=== PATIENT | female | born 1960 | race African-American/Black ===

== ENCOUNTER 2017-03-05 20:16 | Emergency (ER) | payer SELFPAY ==
[~2017-03-05 20:16] MED LIST: PROM25SU8 PO; Z.0.NO CURRENT MEDS
[2017-03-05 20:36] VITALS: BP 128/65; PULSE 82; RESP 20; TEMP 99; O2SAT 97
[2017-03-05] MEDS ORDERED: VITA1000 PO (21:37)
[2017-03-05] MEDS ORDERED: LISI-515 PO (21:37)
[2017-03-05] MEDS ORDERED: methylPREDNISolone SOD SUCC 125 MG/2 ML VIAL IV PUSH ONE ×2 (22:00→22:15)
[2017-03-05] MEDS ORDERED: SODIUM CHLOR 0.9% 1000 ML INJ 1,000 ML IV ONE (22:00)
[2017-03-05] MEDS ORDERED: KETOROLAC TROMETHAMINE 30 MG/ML (IVP) VIAL IV PUSH ONE (22:00)
[2017-03-05] MEDS ORDERED: SODIUM CHLORIDE 0.9% FLUSH 10 ML FLUSH IVF PRN (22:00)
--- NOTE | 2017-03-05 22:11 | PD ---
HPI Chief Complaint: Cold / Flu Symptoms Time Seen by Provider: 21:47 Travel History International Travel<30 days: No Contact w/Intl Traveler<30days: No Traveled to known affect area: No History of Present Illness HPI 56-year-old female with history of hypertension here for evaluation of flulike symptoms. Patient reported the symptoms started today. She was taking care of her grandson who was diagnosed with the flu. Patient describes cough productive of yellowish sputum, generalized malaise, fever, body aches/leg aches , headache. Currently the patient states her headache has resolved. She is having mild shortness of breath. PFSH Past Medical History Arthritis: Yes Diminished Hearing: No Immunizations Current: Yes Tetanus Vaccination: Unknown Influenza Vaccination: No ?: Not Menopausal: Yes : 3 Para: 2 : 1 Ovarian Cysts: Yes Tubal Ligation: Yes (FOR TUBAL ) Past Surgical History Gynecologic Surgery: Yes (TL) Other Surgery: No Social History Alcohol Use: No Tobacco Use: No Substance Use: Yes ([facility]) Allergies-Medications (Allergen,Severity, Reaction): Coded Allergies: No Known Allergies (Verified , 08/27/12) Reported Meds & Prescriptions Reported Meds & Active Scripts Active Reported Vitamin D-1000 (Cholecalciferol) 1,000 Unit Tab 1,000 Units PO DAILY Lisinopril 20 Mg Tab 20 Mg PO DAILY Review of Systems Except as stated in HPI: all other systems reviewed are Neg Physical Exam Narrative GENERAL: Well-developed, thin, no apparent distress SKIN: Focused skin assessment warm/dry. No rash. HEAD: Atraumatic. Normocephalic. EYES: Pupils equal and round. No scleral icterus. No injection or drainage. ENT: Mucous membranes pink and moist. NECK: Trachea midline. No JVD. No nuchal rigidity. CARDIOVASCULAR: Regular rate and rhythm. RESPIRATORY: No accessory muscle use. Slight bilateral inspiratory and expiratory wheezes. No rales or rhonchi. Breath sounds equal bilaterally. GASTROINTESTINAL: Abdomen soft, non-tender, nondistended. MUSCULOSKELETAL: No obvious deformities. No clubbing. No cyanosis. No edema. Bilateral lower extremity some mild tenderness throughout, all compartments are supple. NEUROLOGICAL: Awake and alert. No obvious cranial nerve deficits. Motor grossly within normal limits. Normal speech. PSYCHIATRIC: Appropriate mood and affect; insight and judgment normal. Data Data Last Documented VS Vital Signs Date Time Temp Pulse Resp B/P (MAP) Pulse Ox O2 Delivery O2 Flow Rate FiO2 03/05/17 22:15 97 Room Air 03/05/17 22:15 16 03/05/17 21:42 82 03/05/17 20:36 99.0 128/65 (86) Orders Orders Complete Blood Count With Diff (03/05/17 21:52) Comprehensive Metabolic Panel (03/05/17 21:52) Act Partial Throm Time (Ptt) (03/05/17 21:52) Prothrombin Time / Inr (Pt) (03/05/17 21:52) Ckmb (Isoenzyme) Profile (03/05/17 21:52) Troponin I (03/05/17:52) Influenzae A/B Antigen (03/05/17 21:52) Iv Access Insert/Monitor (03/05/17 21:52) Electrocardiogram (03/05/17 21:52) Ecg Monitoring (03/05/17 21:52) Oximetry (03/05/17 21:52) Oxygen Administration (03/05/17 21:52) Chest, Single Ap (03/05/17 21:52) Sodium Chloride 0.9% Flush (Ns Flush) (03/05/17 22:00) Methylprednisolone So Succ Inj (Solumedr (03/05/17 22:00) Albuterol-Ipratropium Neb (Duoneb Neb) (03/05/17 22:00) Sodium Chlor 0.9% 1000 Ml Inj (Ns 1000 M (03/05/17 22:00) Ketorolac Inj (Toradol Inj) (03/05/17 22:00) Methylprednisolone So Succ Inj (Solumedr (03/05/17 22:15) Us Leg Venous Doppler Bilat (03/05/17 ) Urinalysis - C+S If Indicated (03/05/17 22:55) Ct Pulmonary Angiogram (03/05/17 ) Labs Laboratory Tests Test 03/05/17 22:15 White Blood Count 6.1 TH/MM3 Red Blood Count 4.16 MIL/MM3 Hemoglobin 11.9 GM/DL Hematocrit 37.2 % Mean Corpuscular Volume 89.3 FL Mean Corpuscular Hemoglobin 28.6 PG Mean Corpuscular Hemoglobin Concent 32.1 % Red Cell Distribution Width 13.1 % Platelet Count 235 TH/MM3 Mean Platelet Volume 7.4 FL Neutrophils (%) (Auto) 69.7 % Lymphocytes (%) (Auto) 19.6 % Monocytes (%) (Auto) 9.8 % Eosinophils (%) (Auto) 0.0 % Basophils (%) (Auto) 0.9 % Neutrophils # (Auto) 4.2 TH/MM3 Lymphocytes # (Auto) 1.2 TH/MM3 Monocytes # (Auto) 0.6 TH/MM3 Eosinophils # (Auto) 0.0 TH/MM3 Basophils # (Auto) 0.1 TH/MM3 CBC Comment DIFF FINAL Differential Comment Prothrombin Time 10.2 SEC Prothromb Time International Ratio 1.0 RATIO Activated Partial Thromboplast Time 26.3 SEC Blood Urea Nitrogen 8 MG/DL Creatinine 0.73 MG/DL Random Glucose 74 MG/DL Total Protein 7.0 GM/DL Albumin 3.4 GM/DL Calcium Level 8.8 MG/DL Aspartate Amino Transf (AST/SGOT) 52 U/L Alanine Aminotransferase (ALT/SGPT) 73 U/L Total Bilirubin 0.6 MG/DL Sodium Level 138 MEQ/L Potassium Level 3.5 MEQ/L Chloride Level 103 MEQ/L Carbon Dioxide Level 25.6 MEQ/L Anion Gap 9 MEQ/L Estimat Glomerular Filtration Rate 100 ML/MIN MDM Medical Decision Making Medical Screen Exam Complete: Yes Emergency Medical Condition: Yes Medical Record Reviewed: Yes Interpretation(s) EKG: Sinus, rate 87, normal axis, normal intervals, no acute ischemic abnormality. Differential Diagnosis Influenza, viral illness, URI, pneumonia, bronchitis, reactive airway disease, DVT, rhabdomyolysis Narrative Course Vital signs show heart rate 82, blood pressure 128/65, pulse ox 97% on room air , oral temp of 99F. CBC: WBC 6.1, hemoglobin 11.9, hematocrit 37.2, platelets 235, monocytes 9.8%. Chest x-ray shows no acute disease. Influenza is negative. At approximately 11:00 PM at the end of my shift the patient was signed out to Dr. Peters to follow up with CMP, CT pulmonary angiogram, bilateral lower she may duplex, reassess after DuoNeb treatments, and formulate a disposition. Stalin Gibson MD Mar 05, 2017 22:11
[2017-03-05 22:15] VITALS: BP 129/63; PULSE 68; RESP 16; RESP 18; O2SAT 97; O2SAT 98
[2017-03-05] MEDS: RESP: ALBUTEROL 2.5 MG/IPRATROPIUM 0.5 MG NEB (SCH) INH (22:35)
[2017-03-05 22:44] LABS: AUTOMATED NEUTROPHIL # 4.2 TH/MM3 (1.8-7.7); BASOPHIL # 0.1 TH/MM3 (0-0.2); BASOPHIL % 0.9 % (0.0-2.0); HEMATOCRIT 37.2 % (35.0-46.0); HEMOGLOBIN 11.9 GM/DL (11.6-15.3); LYMPH % 19.6 % (9.0-44.0); LYMPHOCYTE # 1.2 TH/MM3 (1.0-4.8); MEAN CELL VOLUME 89.3 FL (80.0-100.0); MEAN CORPUSCULAR HEMOGLOBIN 28.6 PG (27.0-34.0); MEAN CORPUSCULAR HGB CONC 32.1 % (32.0-36.0); MEAN PLATELET VOLUME 7.4 FL (7.0-11.0); MONO % 9.8 % (0.0-8.0); MONOCYTE # 0.6 TH/MM3 (0-0.9); NEUT % 69.7 % (16.0-70.0); PLATELET COUNT 235 TH/MM3 (150-450); RED BLOOD COUNT 4.16 MIL/MM3 (4.00-5.30); RED CELL DISTRIBUTION WIDTH 13.1 % (11.6-17.2); WHITE BLOOD COUNT 6.1 TH/MM3 (4.0-11.0)
--- NOTE | 2017-03-05 22:52 | RADRPT ---
EXAM DATE/TIME: 03/05/2017 22:43 [facility] COMPARISON: No previous studies available for comparison. INDICATIONS : Short of breath MEDICAL HISTORY : None. SURGICAL HISTORY : None. ENCOUNTER: Initial ACUITY: 1 day PAIN SCORE: 0/10 LOCATION: Bilateral chest FINDINGS: The lungs are clear without infiltrate, nodule, or mass. There is no appreciable pleural effusion fo r technique. Heart and mediastinum are unremarkable. CONCLUSION: No acute cardiopulmonary disease. Jovanni Yuan MD on March 05, 2017 at 22:50 Board Certified Radiologist. This report was verified electronically.
[2017-03-05 22:53] LABS: CHLORIDE 103 MEQ/L (98-107); SODIUM (NA) 138 MEQ/L (136-145)
[2017-03-05 22:57] LABS: ALBUMIN 3.4 GM/DL (3.4-5.0); BICARBONATE 25.6 MEQ/L (21.0-32.0); BLOOD UREA NITROGEN 8 MG/DL (7-18); CALCIUM 8.8 MG/DL (8.5-10.1); GLUCOSE,RANDOM 74 MG/DL (74-106)
[2017-03-05 23:00] LABS: ALT (GPT) 73 U/L (10-53); AST (GOT) 52 U/L (15-37); CREATININE 0.73 MG/DL (0.50-1.00); GLOMERULAR FILTRATION RATE 100 ML/MIN (>89)
[2017-03-05 23:02] LABS: TOTAL BILIRUBIN ADULT 0.6 MG/DL (0.2-1.0)
[2017-03-05 23:03] LABS: ALKALINE PHOSPHATASE 105 U/L (45-117); PROTHROMBIN TIME - PATIENT 10.2 SEC (9.8-11.6)
[2017-03-05 23:05] LABS: TROPONIN I LESS THAN 0.02 NG/ML (0.02-0.05)
--- NOTE | 2017-03-06 00:08 | RADRPT ---
EXAM DATE/TIME: 03/05/2017 23:50 [facility] COMPARISON: No previous studies available for comparison. INDICATIONS : Bilateral leg pain. MEDICAL HISTORY : Bilateral leg pain. Ovarian cysts. History of ectopic . SURGICAL HISTORY : Tubal ligation. ENCOUNTER: Initial ACUITY: 2 day PAIN SCORE: 2/10 LOCATION: Bilateral legs. TECHNIQUE: Venous ultrasound of the left and right leg was performed from the inguinal ligament to the proximal calf. Real-time, color Doppler and spectral tracing, compression and augmentation techniques were us ed. FINDINGS: RIGHT LEG: There is normal compressibility of the deep venous system from the inguinal region to the proximal ca lf. No echogenic clot is seen in the lumen of the common femoral, femoral, popliteal, and posterior tibial veins. There is a normal response of the venous system to proximal and distal augmentation an d respiration. LEFT LEG: There is normal compressibility of the deep venous system from the inguinal region to the proximal ca lf. No echogenic clot is seen in the lumen of the common femoral, femoral, popliteal, and posterior tibial veins. There is a normal response of the venous system to proximal and distal augmentation an d respiration. CONCLUSION: Normal examination. Jovanni Yuan MD on March 06, 2017 at 0:07 Board Certified Radiologist. This report was verified electronically.
[2017-03-06 00:56] LABS: BILIRUBIN, URINE NEG (NEG); BLOOD, URINE SMALL (NEG); GLUCOSE,URINE NEG (NEG); KETONE, URINE 15 mg/dL (NEG); NITRITE,URINE NEG (NEG); PH, URINE 5.5 (5.0-8.5); URINE LEUKOCYTE ESTERASE MOD (NEG)
[2017-03-06] MEDS ORDERED: IOHEXOL 350 MG/ML 10 ML VIAL (for RAD DIAG) IVCONTRAST ONE (01:02)
[2017-03-06 01:04] LABS: URINE COLOR YELLOW (YELLW/STRAW)
[2017-03-06 01:05] LABS: MUCUS URINE OCC /lpf (OCC); SQUAMOUS EPITHELIAL CELL URINE > 8 /hpf (0-5)
[2017-03-06 01:06] LABS: TRICHOMONAS, URINE FEW
[2017-03-06 01:07] LABS: RBC, URINE 0-3 /hpf (0-3)
[2017-03-06 01:08] LABS: BACTERIA, URINE OCC /hpf
--- NOTE | 2017-03-06 01:09 | RADRPT ---
EXAM DATE/TIME: 03/06/2017 00:42 [facility] COMPARISON: No previous studies available for comparison. INDICATIONS : Evaluate for embolism. Cough. Fever. Body aches. IV CONTRAST: 75 cc Omnipaque 350 (iohexol) IV RADIATION DOSE: 6.91 CTDIvol (mGy) MEDICAL HISTORY : None SURGICAL HISTORY : None. ENCOUNTER: Initial ACUITY: 1 day PAIN SCALE: 10/10 LOCATION: chest TECHNIQUE: Volumetric scanning of the chest was performed using a pulmonary embolism protocol MIP images were re constructed. Using automated exposure control and adjustment of the mA and/or kV according to patien t size, radiation dose was kept as low as reasonably achievable to obtain optimal diagnostic quality images. DICOM format image data is available electronically for review and comparison. Follow-up recommendations for detected pulmonary nodules are based at a minimum on nodule size and pa tient risk factors according to Fleischner Society Guidelines. FINDINGS: There is no evidence for PE for technique. Minimal left lung base infiltrate or atelectasis is identi fied. There is no pleural effusion. No appreciable pathological adenopathy is seen within the medias tinum. CONCLUSION: Minimal left lung base infiltrate or atelectasis. Jovanni Yuan MD on March 06, 2017 at 1:04 Board Certified Radiologist. This report was verified electronically.
[2017-03-06 02:35] VITALS: BP 108/63; PULSE 74; RESP 16; O2SAT 99
[2017-03-06] MEDS ORDERED: ZITH500T PO (02:35)
--- NOTE | 2017-03-06 02:37 | PD ---
Physical Exam Time Seen by Provider: 02:24 Narrative : Left this patient with me to check the laboratory/imaging and make a disposition. Data Data Last Documented VS Vital Signs Date Time Temp Pulse Resp B/P (MAP) Pulse Ox O2 Delivery O2 Flow Rate FiO2 03/06/17 00:05 16 03/05/17 22:15 97 Room Air 03/05/17 21:42 82 03/05/17 20:36 99.0 128/65 (86) Orders Orders Complete Blood Count With Diff (03/05/17 21:52) Comprehensive Metabolic Panel (03/05/17 21:52) Act Partial Throm Time (Ptt) (03/05/17 21:52) Prothrombin Time / Inr (Pt) (03/05/17 21:52) Ckmb (Isoenzyme) Profile (03/05/17 21:52) Troponin I (03/05/17 21:52) Influenzae A/B Antigen (03/05/17 21:52) Iv Access Insert/Monitor (03/05/17 21:52) Electrocardiogram (03/05/17 21:52) Ecg Monitoring (03/05/17 21:52) Oximetry (03/05/17 21:52) Oxygen Administration (03/05/17 21:52) Chest, Single Ap (03/05/17 21:52) Sodium Chloride 0.9% Flush (Ns Flush) (03/05/17 22:00) Methylprednisolone So Succ Inj (Solumedr (03/05/17 22:00) Albuterol-Ipratropium Neb (Duoneb Neb) (03/05/17 22:00) Sodium Chlor 0.9% 1000 Ml Inj (Ns 1000 M (03/05/17 22:00) Ketorolac Inj (Toradol Inj) (03/05/17 22:00) Methylprednisolone So Succ Inj (Solumedr (03/05/17 22:15) Us Leg Venous Doppler Bilat (03/05/17 ) Urinalysis - C+S If Indicated (03/05/17 22:55) Ct Pulmonary Angiogram (03/06/17 ) Iohexol 350 Inj (Omnipaque 350 Inj) (03/06/17 01:02) Labs Laboratory Tests Test 03/05/17 22:15 03/06/17 00:20 White Blood Count 6.1 TH/MM3 Red Blood Count 4.16 MIL/MM3 Hemoglobin 11.9 GM/DL Hematocrit 37.2 % Mean Corpuscular Volume 89.3 FL Mean Corpuscular Hemoglobin 28.6 PG Mean Corpuscular Hemoglobin Concent 32.1 % Red Cell Distribution Width 13.1 % Platelet Count 235 TH/MM3 Mean Platelet Volume 7.4 FL Neutrophils (%) (Auto) 69.7 % Lymphocytes (%) (Auto) 19.6 % Monocytes (%) (Auto) 9.8 % Eosinophils (%) (Auto) 0.0 % Basophils (%) (Auto) 0.9 % Neutrophils # (Auto) 4.2 TH/MM3 Lymphocytes # (Auto) 1.2 TH/MM3 Monocytes # (Auto) 0.6 TH/MM3 Eosinophils # (Auto) 0.0 TH/MM3 Basophils # (Auto) 0.1 TH/MM3 CBC Comment DIFF FINAL Differential Comment Prothrombin Time 10.2 SEC Prothromb Time International Ratio 1.0 RATIO Activated Partial Thromboplast Time 26.3 SEC Blood Urea Nitrogen 8 MG/DL Creatinine 0.73 MG/DL Random Glucose 74 MG/DL Total Protein 7.0 GM/DL Albumin 3.4 GM/DL Calcium Level 8.8 MG/DL Alkaline Phosphatase 105 U/L Aspartate Amino Transf (AST/SGOT) 52 U/L Alanine Aminotransferase (ALT/SGPT) 73 U/L Total Bilirubin 0.6 MG/DL Sodium Level 138 MEQ/L Potassium Level 3.5 MEQ/L Chloride Level 103 MEQ/L Carbon Dioxide Level 25.6 MEQ/L Anion Gap 9 MEQ/L Estimat Glomerular Filtration Rate 100 ML/MIN Total Creatine Kinase 55 U/L Troponin I LESS THAN 0.02 NG/ML Urine Color YELLOW Urine Turbidity SLIGHT Urine pH 5.5 Urine Specific [place] 1.007 Urine Protein NEG mg/dL Urine Glucose (UA) NEG mg/dL Urine Ketones 15 mg/dL Urine Occult Blood SMALL Urine Nitrite NEG Urine Bilirubin NEG Urine Leukocyte Esterase MOD Urine RBC 0-3 /hpf Urine WBC 3-5 /hpf Urine Squamous Epithelial Cells > 8 /hpf Urine Bacteria OCC /hpf Urine Mucus OCC /lpf Urine Trichomonas FEW Microscopic Urinalysis Comment CULT NOT INDICATED MDM Medical Record Reviewed: Yes Supervised Visit with EARLENE: No Interpretation(s) The CBC is normal. The AST is 52 and the ALT is 73 but the rest of the complete metabolic profile is normal. The cardiac enzymes are normal. The coagulation profile is normal. The urine shows small occult blood, few urine Trichomonas, moderate leukocyte esterase but is otherwise normal and culture is not indicated. The ultrasound of the leg venous Doppler shows normal. The CT pulmonary angiogram shows minimal left lung base infiltrate or atelectasis. The chest x-ray shows no acute cardiopulmonary disease. The EKG shows sinus rhythm with a rate of 87 and is normal. Differential Diagnosis DVT legs, pulmonary embolus, pneumonia, bronchitis, hypoxemia, electrolyte disorder, anemia Narrative Course The patient has a questionable infiltrate in the left lung base is seen only on the CT pulmonary angiogram. The chest x-ray was normal. Nevertheless, we will put the patient on Zithromax 500 mg daily for 5 days. Her oximetry is 98% at this time on room air. Diagnosis Primary Impression: Pneumonitis Additional Instruction: As we discussed, a possible tiny pneumonia is seen only on the CT scan. Because of this, we will treat she is with Zithromax, 1 tablet daily for 5 days. Follow-up this week with your primary care physician. Med/Other Pt SpecificInfo: Prescription(s) given Scripts Azithromycin (Zithromax) 500 Mg Tab 500 MG PO DAILY for Infection for 5 Days, #5 TAB 0 Refills Prov: Russ Peters MD 03/06/17 Disposition: 01 DISCHARGE HOME Condition: Stable Russ Peters MD Mar 06, 2017 02:37
[2017-03-06] MEDS ORDERED: AZITHROMYCIN 250 MG TAB PO ONE (02:45)
--- NOTE | 2017-03-06 17:28 | EKG ---
Date Performed: 03/05/2017 Time Performed: 22:52:03 PTAGE: 56 years EKG: Sinus rhythm NORMAL ECG Compared to PREVIOUS TRACING , the patient is no longer Bradycardic. PREVIOUS TRACIN08/27/2012 22. 32 DOCTOR: Quin Jimenez Interpretating Date/Time 03/06/2017 17:27:17
== END 2017-03-06 03:02 | disposition home or self-care (01) ==
LOC: PHED 20:16
DX: J18.9 Pneumonia, unspecified organism (principal); R06.02 Shortness of breath; R51 Headache
CPT/HCPCS: 71010; 71275; 80053; 81001; 82550; 84484; 85025; 85610; 85730; 87804; 93005; 93970; 94640; 94664; 96361; 96374; 96375; 99285; J1885; J2930; J7030; Q9967

== ENCOUNTER 2017-06-14 17:13 | Emergency (ER) | payer OTHER ==
[~2017-06-14] VITALS: Ht 154.9 cm; Wt 55.0 kg
[~2017-06-14 17:13] MED LIST changes: +LISI-515 PO; -PROM25SU8 PO; +VITA1000 PO; -Z.0.NO CURRENT MEDS; +ZITH500T PO
[2017-06-14 17:16] VITALS: BP 144/74; PULSE 56; RESP 17; TEMP 98.1; O2SAT 98
[2017-06-14] MEDS ORDERED: SODIUM CHLOR 0.9% 1000 ML INJ 1,000 ML IV SCH (17:51)
[2017-06-14] MEDS ORDERED: ONDANSETRON HCL 4 MG/2 ML VIAL IVP ONE (18:00)
[2017-06-14] MEDS ORDERED: FAMOTIDINE 20 MG TAB PO ONE (18:00)
[2017-06-14] MEDS ORDERED: BISMUTH SUBSALICYLATE 240 ML BTL PO ONE (18:00)
[2017-06-14] MEDS ORDERED: SODIUM CHLORIDE 0.9% FLUSH 10 ML FLUSH IV FLUSH PRN (18:00)
--- NOTE | 2017-06-14 18:04 | PD ---
HPI . Diarrhea Chief Complaint: GI Complaint Time Seen by Provider: 17:37 Travel History International Travel<30 days: No Contact w/Intl Traveler<30days: No Traveled to known affect area: No History of Present Illness HPI Patient presents with a 3-4 day history of vomiting and diarrhea. She states that diarrhea is the worse of the 2 symptoms. She states that she is mainly just dry heaving. She reports approximately 4 episodes of brown, watery stool per day. She is also complaining with some upper abdominal discomfort which she rates 6/10. She reports normal urinary output. She denies any urinary tract symptoms. She states that she has not taken anything for her symptoms. The patient reports that her abdominal pain is exacerbated by eating. PFSH Past Medical History Arthritis: Yes Diminished Hearing: No Hypertension: Yes Immunizations Current: Yes Influenza Vaccination: No ?: Not Menopausal: Yes : 3 Para: 2 : 1 Ovarian Cysts: Yes Tubal Ligation: Yes (FOR TUBAL ) Past Surgical History Gynecologic Surgery: Yes () Other Surgery: No Social History Alcohol Use: No Tobacco Use: No Substance Use: Yes ([facility]) Allergies-Medications (Allergen,Severity, Reaction): Coded Allergies: No Known Allergies (Verified Allergy, Unknown, 06/14/17) Reported Meds & Prescriptions Reported Meds & Active Scripts Active Reported Vitamin D-1000 (Cholecalciferol) 1,000 Unit Tab 1,000 Units PO DAILY Lisinopril 20 Mg Tab 20 Mg PO DAILY Review of Systems Except as stated in HPI: all other systems reviewed are Neg General / Constitutional: Positive: Fever, Chills Respiratory: No: Cough, Shortness of Breath Gastrointestinal: Positive: Nausea, Vomiting, Diarrhea, Abdominal Pain Genitourinary: No: Urgency, Frequency, Dysuria, Decreased Urinary Output Physical Exam Narrative GENERAL: Awake and alert and in no acute distress. SKIN: warm/dry. HEAD: Normocephalic. Atraumatic. EYES: Pupils equal and round. [place] sclera. No injection or drainage. ENT: No nasal bleeding or discharge. Mucous membranes pink and moist. NECK: Trachea midline. Full range of motion without pain.. CARDIOVASCULAR: Regular rate and rhythm. Heart sounds are normal. RESPIRATORY: No accessory muscle use. Clear to auscultation. Breath sounds equal bilaterally. GASTROINTESTINAL: Abdomen soft. Nontender. Bowel sounds present. Nondistended. MUSCULOSKELETAL: No obvious deformities. NEUROLOGICAL: Awake and alert. No obvious cranial nerve deficits. Motor grossly within normal limits. Normal speech. PSYCHIATRIC: Appropriate mood and affect; insight and judgment normal. Data Data Last Documented VS Vital Signs Date Time Temp Pulse Resp B/P (MAP) Pulse Ox O2 Delivery O2 Flow Rate FiO2 06/14/17 20:00 64 16 129/60 (83) 98 Room Air 06/14/17 17:16 98.1 Orders Orders Complete Blood Count With Diff (06/14/17 17:51) Comprehensive Metabolic Panel (06/14/17 17:51) Lipase (06/14/17 17:51) Urinalysis - C+S If Indicated (06/14/17 17:51) Iv Access Insert/Monitor (06/14/17 17:51) Ondansetron Inj (Zofran Inj) (06/14/17 18:00) Sodium Chlor 0.9% 1000 Ml Inj (Ns 1000 M (06/14/17 17:51) Sodium Chloride 0.9% Flush (Ns Flush) (06/14/17 18:00) Electrocardiogram (06/14/17 17:51) Famotidine (Pepcid) (06/14/17 18:00) Bismuth Liq (Pepto-Bismol Liq) (06/14/17 18:00) C Diff Toxin Pcr (06/14/17 18:05) Labs Laboratory Tests Test 06/14/17 18:15 06/14/17 19:45 White Blood Count 7.3 TH/MM3 Red Blood Count 4.15 MIL/MM3 Hemoglobin 12.5 GM/DL Hematocrit 37.9 % Mean Corpuscular Volume 91.2 FL Mean Corpuscular Hemoglobin 30.1 PG Mean Corpuscular Hemoglobin Concent 33.0 % Red Cell Distribution Width 13.2 % Platelet Count 263 TH/MM3 Mean Platelet Volume 7.1 FL Neutrophils (%) (Auto) 54.6 % Lymphocytes (%) (Auto) 38.2 % Monocytes (%) (Auto) 5.7 % Eosinophils (%) (Auto) 0.4 % Basophils (%) (Auto) 1.1 % Neutrophils # (Auto) 4.0 TH/MM3 Lymphocytes # (Auto) 2.8 TH/MM3 Monocytes # (Auto) 0.4 TH/MM3 Eosinophils # (Auto) 0.0 TH/MM3 Basophils # (Auto) 0.1 TH/MM3 CBC Comment DIFF FINAL Differential Comment Blood Urea Nitrogen 7 MG/DL Creatinine 0.90 MG/DL Random Glucose 82 MG/DL Total Protein 7.7 GM/DL Albumin 3.8 GM/DL Calcium Level 9.6 MG/DL Alkaline Phosphatase 81 U/L Aspartate Amino Transf (AST/SGOT) 16 U/L Alanine Aminotransferase (ALT/SGPT) 21 U/L Total Bilirubin 1.1 MG/DL Sodium Level 137 MEQ/L Potassium Level 3.6 MEQ/L Chloride Level 102 MEQ/L Carbon Dioxide Level 25.8 MEQ/L Anion Gap 9 MEQ/L Estimat Glomerular Filtration Rate 78 ML/MIN Lipase 176 U/L Urine Color YELLOW Urine Turbidity CLEAR Urine pH 6.0 Urine Specific [place] LESS/EQUAL 1.005 Urine Protein NEG mg/dL Urine Glucose (UA) NEG mg/dL Urine Ketones 15 mg/dL Urine Occult Blood TRACE Urine Nitrite NEG Urine Bilirubin NEG Urine Urobilinogen 0.2 MG/DL Urine Leukocyte Esterase SMALL Urine RBC 0-3 /hpf Urine WBC 6-8 /hpf Urine Squamous Epithelial Cells 0-5 /hpf Urine Bacteria OCC /hpf Urine Trichomonas PRESENT Microscopic Urinalysis Comment CULT NOT INDICATED MDM Medical Decision Making Medical Screen Exam Complete: Yes Emergency Medical Condition: Yes Interpretation(s) EKG shows a sinus rhythm with a rate of 51. No ST segment elevation or depression. Differential Diagnosis Differential diagnosis of diarrhea includes but is not limited to early enteritis, bacterial enteritis, antibiotic induced diarrhea, irritable bowel syndrome Narrative Course This patient presents with a chief complaint of nausea, vomiting and diarrhea with diarrhea being the worst symptom. She is only having 3 or 4 episodes per day of brown, watery diarrhea. She appears well-hydrated. She is afebrile here. She is not tachycardic or tachypneic. CBC & BMP Diagram 06/14/17 18:15 Total Protein 7.7, Albumin 3.8, Calcium Level 9.6, Alkaline Phosphatase 81, Aspartate Amino Transf (AST/SGOT) 16, Alanine Aminotransferase (ALT/SGPT) 21, Total Bilirubin 1.1 H, lipase 176 UA>>trich The patient has not stooled. She has been here for almost 3 hours. The likelihood of an infectious cause for her diarrhea is very slim. Diagnosis Primary Impression: Diarrhea Qualified Codes: R19.7 - Diarrhea, unspecified Additional Impression: Abdominal pain Qualified Codes: R10.10 - Upper abdominal pain, unspecified Patient Instructions: Acute Diarrhea (ED), General Instructions Disposition: 01 DISCHARGE HOME Condition: Stable Deja Damian MD Jun 14, 2017 18:03
[2017-06-14 18:21] LABS: BASOPHIL # 0.1 TH/MM3 (0-0.2); BASOPHIL % 1.1 % (0.0-2.0); EOSINOPHIL % 0.4 % (0.0-4.0); HEMATOCRIT 37.9 % (35.0-46.0); HEMOGLOBIN 12.5 GM/DL (11.6-15.3); LYMPH % 38.2 % (9.0-44.0); LYMPHOCYTE # 2.8 TH/MM3 (1.0-4.8); MEAN CELL VOLUME 91.2 FL (80.0-100.0); MEAN CORPUSCULAR HEMOGLOBIN 30.1 PG (27.0-34.0); MEAN PLATELET VOLUME 7.1 FL (7.0-11.0); MONO % 5.7 % (0.0-8.0); MONOCYTE # 0.4 TH/MM3 (0-0.9); NEUT % 54.6 % (16.0-70.0); PLATELET COUNT 263 TH/MM3 (150-450); RED BLOOD COUNT 4.15 MIL/MM3 (4.00-5.30); RED CELL DISTRIBUTION WIDTH 13.2 % (11.6-17.2); WHITE BLOOD COUNT 7.3 TH/MM3 (4.0-11.0)
[2017-06-14 18:31] LABS: CHLORIDE 102 MEQ/L (98-107); SODIUM (NA) 137 MEQ/L (136-145)
[2017-06-14 18:34] LABS: CALCIUM 9.6 MG/DL (8.5-10.1)
[2017-06-14 18:35] LABS: ALBUMIN 3.8 GM/DL (3.4-5.0); BICARBONATE 25.8 MEQ/L (21.0-32.0); BLOOD UREA NITROGEN 7 MG/DL (7-18); GLUCOSE,RANDOM 82 MG/DL (74-106)
[2017-06-14 18:38] LABS: ALT (GPT) 21 U/L (10-53); AST (GOT) 16 U/L (15-37); GLOMERULAR FILTRATION RATE 78 ML/MIN (>89)
[2017-06-14 18:39] LABS: TOTAL BILIRUBIN ADULT 1.1 MG/DL (0.2-1.0); TOTAL PROTEIN 7.7 GM/DL (6.4-8.2)
[2017-06-14 18:41] LABS: ALKALINE PHOSPHATASE 81 U/L (45-117)
[2017-06-14 19:00] VITALS: BP 146/84; PULSE 64; RESP 18; O2SAT 99
[2017-06-14 19:53] LABS: BILIRUBIN, URINE NEG (NEG); BLOOD, URINE TRACE (NEG); GLUCOSE,URINE NEG (NEG); KETONE, URINE 15 mg/dL (NEG); NITRITE,URINE NEG (NEG); URINE COLOR YELLOW (YELLW/STRAW); URINE LEUKOCYTE ESTERASE SMALL (NEG)
[2017-06-14 19:58] LABS: BACTERIA, URINE OCC /hpf; RBC, URINE 0-3 /hpf (0-3); SQUAMOUS EPITHELIAL CELL URINE 0-5 /hpf (0-5); TRICHOMONAS, URINE PRESENT
[2017-06-14 20:00] VITALS: BP 129/60; PULSE 64; RESP 16; O2SAT 98
[2017-06-14] MEDS ORDERED: metroNIDAZOLE 500 MG TAB PO ONE (20:15)
[2017-06-14 20:23] VITALS: BP 123/69
--- NOTE | 2017-06-15 05:38 | EKG ---
Date Performed: 06/14/2017 Time Performed: 18:04:20 PTAGE: 56 years EKG: SINUS BRADYCARDIA BORDERLINE ECG PREVIOUS TRACING : 03/05/2017 22.52 Compared to previous tracing, heart rate has slowed. DOCTOR: Saravanan Martinez Interpretating Date/Time 06/15/2017 05:37:31
== END 2017-06-14 20:29 | disposition home or self-care (01) ==
LOC: PHED 17:13
DX: R19.7 Diarrhea, unspecified (principal); R10.10 Upper abdominal pain, unspecified; R94.31 Abnormal electrocardiogram [ECG] [EKG]; R11.2 Nausea with vomiting, unspecified; I10 Essential (primary) hypertension
CPT/HCPCS: 80053; 81001; 83690; 85025; 93005; 96361; 96374; 99284; J2405; J7030

== ENCOUNTER 2017-07-30 21:35 | Emergency (ER) | payer OTHER ==
[~2017-07-30 21:35] MED LIST changes: -ZITH500T PO
[2017-07-30 21:40] VITALS: BP 176/85; PULSE 71; RESP 15; TEMP 98.2; O2SAT 99
--- NOTE | 2017-07-30 22:43 | PD ---
HPI Chief Complaint: Injury Time Seen by Provider: 22:35 Travel History International Travel<30 days: No Contact w/Intl Traveler<30days: No Traveled to known affect area: No History of Present Illness HPI 56-year-old female here with her family for evaluation of left head, left face, left-sided neck pain, left upper extremity pain after a reported slip and fall at a store. The patient reports that the fall occurred about an hour prior to arriving in the emergency department. She admits to hitting her head on the ground, but denies LOC. She is not on any antiplatelets or anticoagulants. Left face, head, left neck, left arm pain is moderate, constant, worse with movements. She is complaining of numbness sensation down her left arm. No chest pain or dyspnea. No abdominal pain. No lower extremity pain. No right upper extremity pain. PFSH Past Medical History Arthritis: Yes Diminished Hearing: No Hypertension: Yes Immunizations Current: Yes ?: Not Menopausal: Yes : 3 Para: 2 : 1 Ovarian Cysts: Yes Tubal Ligation: Yes (FOR TUBAL ) Past Surgical History Gynecologic Surgery: Yes (TL) Other Surgery: No Social History Alcohol Use: No Tobacco Use: No Substance Use: No (denies) Allergies-Medications (Allergen,Severity, Reaction): Coded Allergies: No Known Allergies (Verified Allergy, Unknown, 07/30/17) Reported Meds & Prescriptions Reported Meds & Active Scripts Active Reported Vitamin D-1000 (Cholecalciferol) 1,000 Unit Tab 1,000 Units PO DAILY Lisinopril 20 Mg Tab 20 Mg PO DAILY Review of Systems Except as stated in HPI: all other systems reviewed are Neg Physical Exam Narrative GENERAL: Well-developed, well-nourished, awake, alert, no apparent distress. SKIN: Focused skin assessment warm/dry. HEAD: Normocephalic. Moderate left facial swelling. No craniofacial step-offs. EYES: Pupils equal and round. No scleral icterus. No injection or drainage. ENT: No nasal bleeding or discharge. Mucous membranes pink and moist. Poor dentition with all of her upper teeth absent with several of the upper nerve roots still in her gingiva. No fluctuance or induration. NECK: Trachea midline. No JVD. Moderate midline C-spine tenderness without step -off. Moderate left lateral neck tenderness. CARDIOVASCULAR: Regular rate and rhythm. Distal pulses brisk and equal bilaterally. RESPIRATORY: No accessory muscle use. Clear to auscultation. Breath sounds equal bilaterally. GASTROINTESTINAL: Abdomen soft, non-tender, nondistended. Hepatic and splenic margins not palpable. MUSCULOSKELETAL: Tenderness to the left humerus and left forearm without obvious deformity with limited range of motion secondary to pain. The rest of her joints and extremities are without deformity, without tenderness, with normal range of motion. No thoracic or lumbar spine tenderness or step-off. NEUROLOGICAL: Awake and alert. No obvious cranial nerve deficits. Motor grossly within normal limits. Normal speech. PSYCHIATRIC: Appropriate mood and affect; insight and judgment normal. Data Data Last Documented VS Vital Signs Date Time Temp Pulse Resp B/P (MAP) Pulse Ox O2 Delivery O2 Flow Rate FiO2 07/30/17 21:40 98.2 71 15 176/85 (115) [address] Brain W/O Iv Contrast(Rout) (07/30/17 ) Ct Cerv Spine W/O Contrast (07/30/17 ) Ct Facial Bones W/O Iv Cont (07/30/17 ) Humerus (Min 2vws) (07/30/17 ) Forearm (2vws) (07/30/17 ) Chest, Single Ap (07/30/17 ) Amoxicillin (Trimox) (07/31/17 00:15) MDM Medical Decision Making Medical Screen Exam Complete: Yes Emergency Medical Condition: Yes Differential Diagnosis Slip and fall, closed head injury, intracranial trauma, cervical spine injury, left upper extremity fracture versus contusion Narrative Course Vital signs reviewed. Chest x-ray shows no acute traumatic injury. Left humerus x-ray shows no acute traumatic injury. Left forearm x-ray shows no acute traumatic injury. CT brain: CONCLUSION: 1. Single early intrauterine corresponding to 7 weeks zero day menstrual age. 2. Trace free fluid in the cul-de-sac. CT facial bones: CONCLUSION: 1. No acute fracture. 2. Mucosal thickening in maxillary sinuses right greater than left. 3. Multiple missing teeth. CT cervical spine: CONCLUSION: Negative trauma CT. The patient and the patient's family were made aware of all findings. She is resting comfortably and is awake and alert. She is stable for discharge home with outpatient follow-up. I will start her on amoxicillin for her sinusitis as well as poor dentition. She was advised to follow-up with a dentist this week. She was also advised to follow-up with her primary care physician this week. She was informed on when to return to the emergency department. She verbalizes understanding and agreement with plan. Diagnosis Primary Impression: Fall Qualified Codes: W19.XXXA - Unspecified fall, initial encounter Additional Impressions: Closed head injury Qualified Codes: S09.90XA - Unspecified injury of head, initial encounter Contusion of left arm Qualified Codes: S40.022A - Contusion of left upper arm, initial encounter Cervical strain Qualified Codes: S16.1XXA - Strain of muscle, fascia and tendon at neck level , initial encounter Sinusitis Qualified Codes: J32.0 - Chronic maxillary sinusitis Referrals: Dentist 3 days Primary Care Physician 1 week Additional Instructions: Follow-up with a primary care physician this week. Follow-up with a dentist this week. Return to the emergency department for worsening symptoms or any other concerns. Scripts Amoxicillin (Amoxicillin) 875 Mg Tab 875 MG PO BID for Infection for 10 Days, #20 TAB 0 Refills Prov: Stalin Gibson MD 07/31/17 Disposition: 01 DISCHARGE HOME Condition: Stable Stalin Gibson MD July 30, 2017 22:43
--- NOTE | 2017-07-30 23:02 | RADRPT ---
EXAM DATE/TIME: 07/30/2017 22:54 [facility] COMPARISON: No previous studies available for comparison. INDICATIONS : Left forearm pain, fell MEDICAL HISTORY : None. SURGICAL HISTORY : None. ENCOUNTER: Initial ACUITY: 1 day PAIN SCORE: 8/10 LOCATION: Left Forearm FINDINGS: Two view examination of the left forearm demonstrates no evidence of fracture or dislocation. Bony m ineralization is normal. The soft tissue structures are intact. CONCLUSION: Negative trauma study. Julio Casillas MD on July 30, 2017 at 23:00 Board Certified Radiologist. This report was verified electronically.
--- NOTE | 2017-07-30 23:05 | RADRPT ---
EXAM DATE/TIME: 07/30/2017 22:52 [facility] COMPARISON: CHEST SINGLE AP, March 05, 2017, 22:43. INDICATIONS : Evaluate chest for trauma, fell MEDICAL HISTORY : None. SURGICAL HISTORY : None. ENCOUNTER: Initial ACUITY: 1 day PAIN SCORE: 0/10 LOCATION: chest FINDINGS: A single view of the chest demonstrates the lungs to be symmetrically aerated without evidence of mas s, infiltrate or effusion. The cardiomediastinal contours are unremarkable. Osseous structures are intact. CONCLUSION: Negative single view trauma study with no acute cardiopulmonary disease. Julio Casillas MD on July 30, 2017 at 23:03 Board Certified Radiologist. This report was verified electronically.
--- NOTE | 2017-07-30 23:06 | RADRPT ---
EXAM DATE/TIME: 07/30/2017 22:53 [facility] COMPARISON: No previous studies available for comparison. INDICATIONS : Left humerus pain, fell MEDICAL HISTORY : None. SURGICAL HISTORY : None. ENCOUNTER: Initial ACUITY: 1 day PAIN SCORE: 9/10 LOCATION: Left Humerus FINDINGS: Two view examination of the left humerus demonstrates no evidence of fracture or dislocation. Bony m ineralization is normal. The soft tissue structures are intact. CONCLUSION: Negative trauma study. Julio Casillas MD on July 30, 2017 at 23:04 Board Certified Radiologist. This report was verified electronically.
--- NOTE | 2017-07-31 | RADRPT ---
EXAM DATE/TIME: 07/30/2017 23:40 [facility] COMPARISON: No previous studies available for comparison. INDICATIONS : Trauma; fall. RADIATION DOSE: 31.94 CTDIvol (mGy) MEDICAL HISTORY : Hypertension. SURGICAL HISTORY : Tubal ligation. ENCOUNTER: Initial ACUITY: 1 day PAIN SCALE: 5/10 LOCATION: cranial TECHNIQUE: Multiple contiguous axial images were obtained of the head. Using automated exposure control and adj ustment of the mA and/or kV according to patient size, radiation dose was kept as low as reasonably a chievable to obtain optimal diagnostic quality images. DICOM format image data is available electro nically for review and comparison. FINDINGS: CEREBRUM: The ventricles are normal for age. No evidence of midline shift, mass lesion, hemorrhage or acute in farction. No extra-axial fluid collections are seen. POSTERIOR FOSSA: The cerebellum and brainstem are intact. The 4th ventricle is midline. The cerebellopontine angle i s unremarkable. EXTRACRANIAL: The visualized portion of the orbits is intact. SKULL: The calvaria is intact. No evidence of skull fracture. CONCLUSION: Negative trauma study. Julio Casillas MD on July 30, 2017 at 23:58 Board Certified Radiologist. This report was verified electronically.
--- NOTE | 2017-07-31 00:02 | RADRPT ---
EXAM DATE/TIME: 07/30/2017 23:40 [facility] COMPARISON: No previous studies available for comparison. INDICATIONS : Trauma; fall. RADIATION DOSE: 60.30 CTDIvol (mGy) MEDICAL HISTORY : Hypertension. SURGICAL HISTORY : Tubal ligation. ENCOUNTER: Initial ACUITY: 1 day PAIN SCORE: 5/10 LOCATION: Bilateral facial TECHNIQUE: Volumetric scanning of the facial bones was performed. Using automated exposure control and adjustme nt of the mA and/or kV according to patient size, radiation dose was kept as low as reasonably achiev able to obtain optimal diagnostic quality images. DICOM format image data is available electronicall y for review and comparison. FINDINGS: ORBITS: The orbital and infraorbital osseous structures are intact. The retroconal structures have a normal configuration. No radiopaque foreign bodies are seen. NASAL BONE: The nasal bone and maxillary spine are intact ZYGOMATIC ARCHES: Symmetric without evidence of fracture. SINUSES: The maxillary, ethmoid and frontal sinuses are intact. No air-fluid levels seen. Also thickening is noted maxillary sinuses right greater than left. Multiple missing teeth. NASAL CAVITY: The nasal septum is intact and midline. The lacrimal ducts are intact. SOFT TISSUES: No radiopaque foreign bodies seen. No soft-tissue swelling is seen. INTRACRANIAL: No intracranial air seen. CRIBIFORM PLATE: Grossly intact. CONCLUSION: 1. No acute fracture. 2. Mucosal thickening in maxillary sinuses right greater than left. 3. Multiple missing teeth. Julio Casillas MD on July 30, 2017 at 23:59 Board Certified Radiologist. This report was verified electronically.
--- NOTE | 2017-07-31 00:03 | RADRPT ---
EXAM DATE/TIME: 07/30/2017 23:40 [facility] COMPARISON: No previous studies available for comparison. INDICATIONS : Trauma; fall. RADIATION DOSE: 17.58 CTDIvol (mGy) MEDICAL HISTORY : Hypertension. SURGICAL HISTORY : Tubal ligation. ENCOUNTER: Initial ACUITY: 1 day PAIN SCALE: 5/10 LOCATION: Bilateral neck TECHNIQUE: Volumetric scanning of the cervical spine was performed. Multiplanar reconstructions i n the sagittal, coronal and oblique axial planes were performed. Using automated exposure control a nd adjustment of the mA and/or kV according to patient size, radiation dose was kept as low as reason ably achievable to obtain optimal diagnostic quality images. DICOM format image data is available e lectronically for review and comparison. FINDINGS: The sagittal reconstructions demonstrate normal alignment and normal prevertebral soft tissues. The d ens is intact and there is a normal atlantoaxial relationship. Mild degenerative disc changes are pre sent. The axial images demonstrate that the vertebral bodies and posterior elements are intact. The soft ti ssues are within normal limits. There is no evidence of acute fracture or malalignment. CONCLUSION: Negative trauma CT. Julio Casillas MD on July 31, 2017 at 0:01 Board Certified Radiologist. This report was verified electronically.
[2017-07-31] MEDS ORDERED: AMOX875T PO (00:11)
[2017-07-31] MEDS ORDERED: AMOXICILLIN 875 MG TAB PO ONE (00:15)
== END 2017-07-31 00:20 | disposition home or self-care (01) ==
LOC: NEPD 21:35
DX: S09.90XA Unspecified injury of head, initial encounter (principal); S40.022A Contusion of left upper arm, initial encounter; S16.1XXA Strain of muscle, fascia and tendon at neck level, initial encounter; J32.0 Chronic maxillary sinusitis; I10 Essential (primary) hypertension; W01.0XXA Fall on same level from slipping, tripping and stumbling without subsequent striking against object, initial encounter; Y92.512 Supermarket, store or market as the place of occurrence of the external cause
CPT/HCPCS: 70450; 70486; 71045; 72125; 73060; 73090

== ENCOUNTER 2017-08-10 09:05 | Emergency (ER) | payer OTHER ==
[~2017-08-10] VITALS: Ht 152.4 cm; Wt 56.8 kg
[2017-08-10 09:05] VITALS: BP 137/69; PULSE 81; RESP 18; TEMP 98.6; O2SAT 97
[~2017-08-10 09:05] MED LIST changes: +AMOX875T PO
--- NOTE | 2017-08-10 09:16 | PD ---
HPI Chief Complaint: Cold / Flu Symptoms Time Seen by Provider: 09:13 Travel History International Travel<30 days: No Contact w/Intl Traveler<30days: No Traveled to known affect area: No History of Present Illness HPI Patient comes in complaining of generalized body aches, feeling nauseous, stating that she has been feeling this way since she fell down on July 30 at a store. She was seen on that same day at [facility] where she had multiple CT scans and x-rays all of which were negative. Patient explicitly denies any alleviating or aggravating factors. He also denies any associated factors such as fever, rash, sore throat, cough, breathing difficulty, vomiting or diarrhea. Patient also denies any urgency frequency dysuria hematuria. No known drug allergy Past medical history significant for corrective lenses, hypertension, tubal , arthritis. PFSH Past Medical History Arthritis: Yes Diminished Hearing: No Hypertension: Yes Immunizations Current: Yes ?: Not Menopausal: Yes : 3 Para: 2 : 1 Ovarian Cysts: Yes Tubal Ligation: Yes (FOR TUBAL ) Past Surgical History Gynecologic Surgery: Yes (TL) Other Surgery: No Social History Alcohol Use: No Tobacco Use: No Substance Use: No (denies) Allergies-Medications (Allergen,Severity, Reaction): Coded Allergies: No Known Allergies (Verified Allergy, Unknown, 08/10/17) Reported Meds & Prescriptions Reported Meds & Active Scripts Active Amoxicillin 875 Mg Tab 875 Mg PO BID 10 Days Reported Vitamin D-1000 (Cholecalciferol) 1,000 Unit Tab 1,000 Units PO DAILY Lisinopril 20 Mg Tab 20 Mg PO DAILY Review of Systems General / Constitutional: No: Fever Eyes: No: Visual changes HENT: No: Headaches Cardiovascular: No: Chest Pain or Discomfort Respiratory: No: Shortness of Breath Gastrointestinal: Positive: Nausea, No: Abdominal Pain Genitourinary: No: Dysuria Musculoskeletal: Positive: Myalgias, No: Pain Skin: No Rash Neurologic: No: Weakness Psychiatric: No: Depression Endocrine: No: Polydipsia Hematologic/Lymphatic: No: Easy Bruising Physical Exam Narrative GENERAL: SKIN: Warm and dry. HEAD: Atraumatic. Normocephalic. EYES: Pupils equal and round. No scleral icterus. No injection or drainage. ENT: No nasal bleeding or discharge. Mucous membranes pink and moist. NECK: Trachea midline. No JVD. CARDIOVASCULAR: Regular rate and rhythm. RESPIRATORY: No accessory muscle use. Clear to auscultation. Breath sounds equal bilaterally. GASTROINTESTINAL: Abdomen soft, non-tender, nondistended. MUSCULOSKELETAL: Extremities without clubbing, cyanosis, or edema. No obvious deformities. NEUROLOGICAL: Awake and alert. No obvious cranial nerve deficits. Motor grossly within normal limits. Five out of 5 muscle strength in the arms and legs. Normal speech. PSYCHIATRIC: Appropriate mood and affect; insight and judgment normal. Data Data Last Documented VS Vital Signs Date Time Temp Pulse Resp B/P (MAP) Pulse Ox O2 Delivery O2 Flow Rate FiO2 08/10/17 09:05 98.6 81 18 137/69 (91) 97 Orders Orders Urinalysis - C+S If Indicated (08/10/17 09:32) Influenzae A/B Antigen (08/10/17 09:32) Drug Screen, Random Urine (08/10/17 09:32) Ketorolac Inj (Toradol Inj) (08/10/17 09:45) Ondansetron Odt (Zofran Odt) (08/10/17 09:45) Labs Laboratory Tests Test 08/10/17 09:50 Urine Color YELLOW Urine Turbidity CLEAR Urine pH 7.0 Urine Specific Ephraim 1.010 Urine Protein NEG mg/dL Urine Glucose (UA) NEG mg/dL Urine Ketones TRACE mg/dL Urine Occult Blood TRACE Urine Nitrite NEG Urine Bilirubin NEG Urine Urobilinogen 0.2 MG/DL Urine Leukocyte Esterase NEG Urine RBC 0-3 /hpf Urine Squamous Epithelial Cells 0-5 /hpf Microscopic Urinalysis Comment CULT NOT INDICATED Urine Opiates Screen NEG Urine Barbiturates Screen NEG Urine Amphetamines Screen NEG Urine Benzodiazepines Screen NEG Urine Cocaine Screen NEG Urine Cannabinoids Screen POS [facility] Medical Decision Making Medical Screen Exam Complete: Yes Emergency Medical Condition: Yes Medical Record Reviewed: Yes Differential Diagnosis Flu versus viral syndrome versus UTI Narrative Course UA is negative for any UTI Tox screen positive only for marijuana Flu test is negative Diagnosis Primary Impression: Generalized myalgias NOS Patient Instructions: General Instructions, Musculoskeletal Pain (ED) Scripts Ketorolac (Ketorolac) 10 Mg Tab 10 MG PO TID Y for Pain Management, #12 TAB 0 Refills Prov: Jose Luis Rivera MD 08/10/17 Cyclobenzaprine (Flexeril) 10 Mg Tab 10 MG PO TID for Muscle Spasm, #21 TAB 0 Refills Prov: Jose Luis Rivera MD 08/10/17 Disposition: 01 DISCHARGE HOME Condition: Stable Jose Luis Rivera MD Aug 10, 2017 09:16
[2017-08-10] MEDS ORDERED: KETOROLAC TROMETHAMINE 60 MG/2 ML (IM) VIAL IM ONE (09:45)
[2017-08-10] MEDS ORDERED: ONDANSETRON ODT 4 MG TAB PO ONE (09:45)
[2017-08-10 09:57] LABS: BILIRUBIN, URINE NEG (NEG); BLOOD, URINE TRACE (NEG); GLUCOSE,URINE NEG (NEG); KETONE, URINE TRACE mg/dL (NEG); NITRITE,URINE NEG (NEG); URINE COLOR YELLOW (YELLW/STRAW); URINE LEUKOCYTE ESTERASE NEG (NEG)
[2017-08-10 10:03] LABS: RBC, URINE 0-3 /hpf (0-3); SQUAMOUS EPITHELIAL CELL URINE 0-5 /hpf (0-5)
[2017-08-10] MEDS ORDERED: CYCL10TA PO (10:30)
[2017-08-10] MEDS ORDERED: KETO10 PO (10:30)
== END 2017-08-10 10:54 | disposition home or self-care (01) ==
LOC: PHED 09:05
DX: M79.1 Myalgia (principal); R11.0 Nausea; M19.90 Unspecified osteoarthritis, unspecified site; I10 Essential (primary) hypertension
CPT/HCPCS: 80307; 81001; 87804; 96372; 99283; J1885